=== PATIENT | female | born 1975 | race Caucasian/White ===

== ENCOUNTER 2018-07-07 19:43 | Emergency (ER) | payer MEDICAID ==
[2018-07-07] MEDS ORDERED: Albuterol/Ipratropium Neb 3 ML AERS HHN ONE ×2 (20:08→20:11)
--- NOTE | 2018-07-07 20:14 | ED Physician Chart ---
ED Chief Complaint/HPI - Patient Information Date Seen:: 07/07/18 Time Seen:: 20:00 Chief Complaint:: cough History of Present Illness:: Patient's had a nonproductive cough and sore throat for 2 days. Her neighbor took her temperature yesterday and told her she had a fever but patient does not know how high. Patient also has a left earache and myalgia. Allergies:: Allergies Allergy/AdvReac Type Severity Reaction Status Date / Time No Known Allergies Allergy Verified 07/07/18 19:57 Vitals:: Vital Signs - 8 hr 07/07/18 19:50 Temp 97.9 F HR 75 RR 16 BP 148/92 O2 Sat % 96 Historian:: Patient Review:: Nurse's Note Reviewed ED Review of Systems - Review of Systems General/Constitutional: Fever Skin: No skin lesions Head: No headache Eyes: No loss of vision ENT: Earache, Sore throat Neck: No neck pain Cardio Vascular: No chest pain Pulmonary: Cough, No sputum GI: No nausea, No vomiting, No diarrhea Musculoskeletal: No bone or joint pain, Muscle pain Psychiatric: No prior psych history, No depression, No anxiety Hematopoietic: No bruising, No lymphadenopathy Allergic/Immuno: No urticaria Neurological: No syncope, No focal symptoms, No weakness Family Medical History - Family Member Mother Ethnicity: Non- ED Labs/Radiology/EKG Results - Lab Results Results: Abnormal Lab Results 07/07/18 07/07/18 20:10 20:12 Urine Test NEGATIVE POC Ur Test Negative Influenza A (Rapid) NEG FOR INF A Influenza B (Rapid) NEG FOR INF B - Radiology Results Results: Chest x-ray negative ED Assessment - Assessment General Assessment: After the breathing treatment with albuterol and Atrovent patient was coughing much less. Chest x-ray was normal. Explained to the patient that antibiotics are not effective for viral infections which are not influenza A or B. Since she improved with the breathing treatment she will be prescribed albuterol metered-dose inhaler to take 2 puffs every 4 hours as necessary for cough or shortness of breath. I gave instructions on the proper use of the metered-dose inhaler. I encouraged the patient to get influenza vaccination every year the end of February or beginning of March. ED Septic Shock - . Is Septic Shock (SBP<90, OR Lactate>4 mmol\L) present?: No - <6hrs of presentation: Vital Signs: Vital Signs - 8 hr 07/07/18 19:50 Temp 97.9 F HR 75 RR 16 BP 148/92 O2 Sat % 96 ED Reassessment (Disposition) - Reassessment Reassessment Condition:: Improved - Diagnosis Diagnosis:: Acute viral syndrome; viral bronchitis - Aftercare/Follow up Instructions Aftercare/Follow-Up Instructions:: Refer to Discharge Instructions - Patient Disposition Discharge/Transfer:: Home Condition at Disposition:: Stable, Improved
[2018-07-07 20:34] LABS: PREGNANCY TEST URINE NEGATIVE
[2018-07-07 20:49] LABS: INF A SCREEN NEG FOR INF A
[2018-07-07 20:50] LABS: INF B SCREEN NEG FOR INF B
--- NOTE | 2018-07-08 07:54 | Diagnostic Imaging Report ---
CHEST X-RAY: AP view INDICATION: Cough COMPARISON: None FINDINGS: Suboptimal lung volumes are noted with slight increase left basal lung markings. No focal consolidation or definite pleural effusions. Heart size appears to be at the upper limits of normal. The osseous structures are intact. IMPRESSION: Suboptimal lung volumes. Slight increased left lateral basal lung markings are noted probably related to atelectasis. Faint infiltrate is less likely. No focal consolidation identified.
== END 2018-07-07 21:14 | disposition home or self-care (01) ==
LOC: ER 19:43
DX: J20.8 Acute bronchitis due to other specified organisms (principal); B34.9 Viral infection, unspecified
CPT/HCPCS: 71045-TC; 81025-TC; 87804-TC; 94640; Z7502

== ENCOUNTER 2018-07-08 17:02 | Emergency (ER) | payer MEDICAID ==
--- NOTE | 2018-07-08 17:27 | ED Physician Chart ---
ED Chief Complaint/HPI - Patient Information Date Seen:: 07/08/18 Time Seen:: 17:22 Chief Complaint:: chest congestion History of Present Illness:: this is a 42 yo female who was here yesterday for a uri and treated but has not gotten worse. she is concerned about pneumonia. Allergies:: Allergies Allergy/AdvReac Type Severity Reaction Status Date / Time No Known Allergies Allergy Verified 07/07/18 19:57 Historian:: Patient Review:: Nurse's Note Reviewed, Old Chart Reviewed ED Review of Systems - Review of Systems General/Constitutional: Fever, No chills, No weight loss, No weakness, No diaphoresis, No edema, No loss of appetite Skin: No skin lesions, No rash, No bruising Head: No headache, No light-headedness Eyes: No loss of vision, No pain, No diplopia ENT: No earache, No nasal drainage, No sore throat, No tinnitus Neck: No neck pain, No swelling, No thyromegaly, No stiffness, No mass noted Cardio Vascular: No chest pain, No palpitations, No PND, No orthopnea, No edema Pulmonary: SOB, Cough, No sputum, No wheezing GI: No nausea, No vomiting, No diarrhea, No pain, No melena, No hematochezia, No constipation, No hematemesis G/U: No dysuria, No frequency, No hematuria Musculoskeletal: No bone or joint pain, No back pain, No muscle pain Endocrine: No polyuria, No polydipsia Psychiatric: No prior psych history, No depression, No anxiety, No suicidal ideation Hematopoietic: No bruising, No lymphadenopathy Allergic/Immuno: No urticaria, No angioedema Neurological: No syncope, No focal symptoms, No weakness, No paresthesia, No headache, No seizure, No dizziness, No confusion, No vertigo ED Past Medical History - Past Medical History Obtainable: Yes Past Medical History: Asthma/COPD Family History: None Social History: Non Smoker, No Alcohol, No Drug Use, Employed Surgical History: None Psychiatricy History: None Medication: Reviewed Family Medical History - Family Member Mother History Unknown: Yes Ethnicity: Non- ED Physical Exam - Physical Examination General/Constitutional: Awake, Well-developed, well-nourished, Alert, No distress, GCS 15, Non-toxic appearing, Ambulatory Head: Atraumatic Eyes: Lids, conjuctiva normal, PERRL, EOMI Skin: Nl inspection, No rash, No skin lesions, No ecchymosis, Well hydrated, No lymphadenopathy ENMT: External ears, nose nl, Nasal exam nl, Lips, teeth, gums nl, Oropharynx nl (red and swollen.) Neck: Nontender, Full ROM w/o pain, No JVD, No nuchal rigidity, No bruit, No mass, No stridor Respiratory: Nl effort/Exclusion, Clear to Auscultation, No Wheeze/Rhonchi/ Rales (bilateral ronchi heard) Cardio Vascular: RRR, No murmur, gallop, rubs, NL S1 S2 GI: No tenderness/rebounding/guarding, No organomegaly, No hernia, Normal BS's, Nondistended, No mass/bruits, No McBurney tenderness : No CVA tenderness Extremities: No tenderness or effusion, Full ROM, normal strength in all extremities, No edema, Normal digits & nails Neuro/Psych: Alert/oriented, DTR's symmetric, Normal sensory exam, Normal motor strength, Judgement/insight normal, Mood normal, Normal gait, No focal deficits Misc: Normal back, No paraspinal tenderness ED Assessment - Assessment General Assessment: acute bronchitis acute pharyngitis ED Septic Shock - . Is Septic Shock (SBP<90, OR Lactate>4 mmol\L) present?: No ED Reassessment (Disposition) - Reassessment Reassessment Condition:: Unchanged - Diagnosis Diagnosis:: acute bronchitis acute pharyngitis - Aftercare/Follow up Instructions Aftercare/Follow-Up Instructions:: Counseled pt regarding lab results/diagnosis & need follow up, Refer to Discharge Instructions, Counseled pt & family regarding lab results/diagnosis & need follow up Medication Prescribed:: z-chetan, prednisone - Patient Disposition Discharge/Transfer:: Home Condition at Disposition:: Unchanged
== END 2018-07-08 18:00 | disposition home or self-care (01) ==
LOC: ER 17:02
DX: J20.9 Acute bronchitis, unspecified (principal); J02.9 Acute pharyngitis, unspecified; J44.9 Chronic obstructive pulmonary disease, unspecified
CPT/HCPCS: 99283; 96372 ×2; J0696; J2930; Z7502

== ENCOUNTER 2018-07-09 21:35 | Emergency (ER) | payer MEDICAID ==
--- NOTE | 2018-07-09 22:13 | ED Physician Chart ---
ED Chief Complaint/HPI - Patient Information Date Seen:: 07/09/18 Time Seen:: 22:00 Chief Complaint:: allergic rash History of Present Illness:: this is a 42 yo female who took zithromycin for the first time and then suddenly started to get a rash all over her body. she feel much better but concerned about the new rash. Allergies:: Allergies Allergy/AdvReac Type Severity Reaction Status Date / Time No Known Allergies Allergy Verified 07/07/18 19:57 Vitals:: Vital Signs - 8 hr 07/09/18 21:45 Temp 98.0 F HR 88 RR 18 BP 129/74 O2 Sat % 98 Historian:: Patient Review:: Nurse's Note Reviewed, Old Chart Reviewed ED Review of Systems - Review of Systems General/Constitutional: No fever, No chills, No weight loss, No weakness, No diaphoresis, No edema, No loss of appetite Skin: No skin lesions, Rash, No bruising Head: No headache, No light-headedness Eyes: No loss of vision, No pain, No diplopia ENT: No earache, No nasal drainage, No sore throat, No tinnitus Neck: No neck pain, No swelling, No thyromegaly, No stiffness, No mass noted Cardio Vascular: No chest pain, No palpitations, No PND, No orthopnea, No edema Pulmonary: No SOB, No cough, No sputum, No wheezing GI: No nausea, No vomiting, No diarrhea, No pain, No melena, No hematochezia, No constipation, No hematemesis G/U: No dysuria, No frequency, No hematuria Musculoskeletal: No bone or joint pain, No back pain, No muscle pain Endocrine: No polyuria, No polydipsia Psychiatric: No prior psych history, No depression, No anxiety, No suicidal ideation Hematopoietic: No bruising, No lymphadenopathy Allergic/Immuno: No urticaria, No angioedema Neurological: No syncope, No focal symptoms, No weakness, No paresthesia, No headache, No seizure, No dizziness, No confusion, No vertigo ED Past Medical History - Past Medical History Obtainable: Yes Past Medical History: Other (bronchitis) Family History: None Social History: Non Smoker, No Alcohol, No Drug Use, Employed Surgical History: None Psychiatricy History: None Medication: Reviewed Family Medical History - Family Member Mother History Unknown: Yes Ethnicity: Non- ED Physical Exam - Physical Examination General/Constitutional: Awake, Well-developed, well-nourished, Alert, No distress, GCS 15, Non-toxic appearing, Ambulatory Head: Atraumatic Eyes: Lids, conjuctiva normal, PERRL, EOMI Skin: Nl inspection, No skin lesions, No ecchymosis, Well hydrated, No lymphadenopathy Other Skin comments:: there is a generalize rash over the entire body. ENMT: External ears, nose nl, Nasal exam nl, Lips, teeth, gums nl Neck: Nontender, Full ROM w/o pain, No JVD, No nuchal rigidity, No bruit, No mass, No stridor Respiratory: Nl effort/Exclusion, Clear to Auscultation, No Wheeze/Rhonchi/Rales Cardio Vascular: RRR, No murmur, gallop, rubs, NL S1 S2 GI: No tenderness/rebounding/guarding, No organomegaly, No hernia, Normal BS's, Nondistended, No mass/bruits, No McBurney tenderness : No CVA tenderness Extremities: No tenderness or effusion, Full ROM, normal strength in all extremities, No edema, Normal digits & nails Neuro/Psych: Alert/oriented, DTR's symmetric, Normal sensory exam, Normal motor strength, Judgement/insight normal, Mood normal, Normal gait, No focal deficits Misc: Normal back, No paraspinal tenderness ED Assessment - Assessment General Assessment: allergic reaction ED Septic Shock - . Is Septic Shock (SBP<90, OR Lactate>4 mmol\L) present?: No - <6hrs of presentation: Vital Signs: Vital Signs - 8 hr 07/09/18 21:45 Temp 98.0 F HR 88 RR 18 BP 129/74 O2 Sat % 98 ED Reassessment (Disposition) - Reassessment Reassessment Condition:: Improved - Diagnosis Diagnosis:: allergic reaction - Aftercare/Follow up Instructions Aftercare/Follow-Up Instructions:: Counseled pt regarding lab results/diagnosis & need follow up, Refer to Discharge Instructions, Counseled pt & family regarding lab results/diagnosis & need follow up - Patient Disposition Discharge/Transfer:: Home Condition at Disposition:: Improved
[2018-07-09 22:43] LABS: ALB/GLOB RATIO 1.3 (1.0-1.8); ALKALINE PHOSPHATASE 70 U/L (34-104); ANION GAP 12.3 (7.0-16.0); BILIRUBIN,TOTAL 0.3 mg/dL (0.3-1.0); BUN - UREA NITROGEN 18 mg/dL (7-25); CALCIUM SERUM 9.5 mg/dL (8.6-10.3); CARBON DIOXIDE 22.2 mEq/L (21.0-31.0); CHLORIDE 100 mEq/L (98-107); CREATININE - SERUM 0.8 mg/dL (0.6-1.2); GFR AFRICAN-AMERICAN > 60.0 ml/min (>90); GFR NON AFRICAN-AMERICAN > 60.0 ml/min; GLUCOSE 326 mg/dL (70-105); POTASSIUM SERUM 3.5 mEq/L (3.5-5.1); SGOT 14 U/L (13-39); SGPT/ALT 24 U/L (7-52); SODIUM SERUM 131 mEq/L (136-145); TOTAL PROTEIN,SERUM 7.2 gm/dL (6.0-8.3)
[2018-07-09 22:46] LABS: URINE SOURCE CLEAN C
[2018-07-09 22:50] LABS: URINE BILIRUBIN NEGATIVE (NEGATIVE); URINE BLOOD MODERATE (NEGATIVE); URINE GLUCOSE (UA) >=1000 mg/dL (NEGATIVE); URINE KETONE NEGATIVE (NEGATIVE); URINE LEUKOCYTE ESTERASE NEGATIVE (NEGATIVE); URINE MICROSCOPIC INDICATED? YES; URINE NITRATE NEGATIVE (NEGATIVE); URINE PROTEIN 30 mg/dL (NEGATIVE); URINE UROBILINOGEN 0.2 E.U./dL (0.2 - 1.0)
[2018-07-09 23:05] LABS: HEMATOCRIT 37.7 % (41.0-60); HEMOGLOBIN 12.1 gm/dL (12-16); MEAN CELL VOLUME 75.1 fl (81-100); MEAN CORPUSCULAR HEMOGLOBIN 24.1 pg (27.0-31.0); MEAN CORPUSCULAR HGB CONC 32.1 pg (28.0-36.0); MEAN PLATELET VOLUME 7.9 fl; PLATELET COUNT 460 Th/cmm (150-400); RED BLOOD COUNT 5.02 Mil/cmm (3.80-5.10)
[2018-07-09 23:07] LABS: URINE CLARITY CLEAR2 (CLEAR); URINE COLOR STRAW
[2018-07-09 23:15] LABS: WHITE BLOOD COUNT 16.9 Th/cmm (4.8-10.8)
[2018-07-09] MEDS ORDERED: INSULIN LISPRO 100 UNIT/ML VIAL SUBQ SCH (23:45)
[2018-07-09 23:46] LABS: URINE EPITHELIAL CELLS OCCASIONAL /lpf (FEW); URINE RBC 0-2 /hpf (0-5); URINE WBC 0-2 /hpf (0-5)
[2018-07-09 23:47] LABS: URINE BACTERIA NONE SEEN /hpf (NONE SEEN)
[2018-07-10] MEDS ORDERED: Sodium Chloride 0.9% 1,000 ML IV ONE (00:12)
== END 2018-07-10 02:25 | disposition home or self-care (01) ==
LOC: ER 21:35
DX: R21 Rash and other nonspecific skin eruption (principal); T36.3X5A Adverse effect of macrolides, initial encounter; Y92.89 Other specified places as the place of occurrence of the external cause
CPT/HCPCS: 99283; 96372 ×2; 96374; 36415 ×2; 36416 ×2; 82948; 83605 ×2; 84443; 85025; 87086; 81001; 83036; 80053; J2930; J0696; J1200; J7030; Z7502